=== PATIENT | male | born 2005 | race Caucasian/White ===

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

== ENCOUNTER 2024-09-26 15:56 | Outpatient (CLI) | payer BC, SELFPAY ==
[2024-09-26 19:58] LABS: Hematocrit 43.1 % (42.0-52.0); Hemoglobin 14.7 g/dL (14.0-18.0); Mean Corpuscular HGB Conc 34.1 g/dl (32-36); Mean Corpuscular Hemoglobin 29.3 pg (26-34); Mean Platelet Volume 11.3 fl (7.4-10.4); Platelet Count Result 332 k/mm3 (150-375); Red Blood Count 5.01 M/mm3 (4.6-6.20); Red Cell Distribution Width 12.4 % (11.5-14.5)
[2024-09-26 20:10] LABS: Add Urine Microscopic? NO; Appearance Urine Clear (Clear); Bilirubin Urine Negative (Negative); Blood Urine Negative (Negative); Color Urine Yellow (Yellow); Glucose Urine UA Negative (Negative); Ketones Urine Negative (Negative); Leukocyte Esterase Ur Negative LEU/UL (Negative); Nitrate Urine Negative (Negative); Protein Urine Negative (Negative); Specific Grav Ur 1.003 (1.001-1.035); Urobilinogen Urine 0.2 mg/dL (<2.0); pH Urine 7.5 (5.0-9.0)
[2024-09-26 20:14] LABS: Alanine Aminotransferase 14 U/L (6-50); Albumin Level 4.4 g/dL (3.5-5.1); Alkaline Phosphatase 111 U/L (38-126); Anion Gap 11 mmol/L (4-12); Aspartate Amino Transferase 19 U/L (17-59); Bilirubin,Total 0.6 mg/dL (0.2-1.3); Blood Urea Nitrogen 15 mg/dL (9-20); Calcium 9.7 mg/dL (8.4-10.2); Carbon Dioxide 27 mmol/L (22-30); Chloride 101 mmol/L (98-107); Cholesterol 94 mg/dL (0-200); Estimated Glomerular Filt Rate > 60; Glucose 95 mg/dL (65-110); HDL Direct 42 mg/dL; Potassium 4.4 mmol/L (3.4-5.0); Sodium 139 mmol/L (137-145); Triglycerides 63 mg/dL (<150)
[2024-09-26 20:29] LABS: LDL Cholesterol Direct 41 mg/dL
[2024-09-26 21:11] LABS: Vitamin D 25 Hydroxy 28.6 ng/mL
== END 2024-09-26 15:57 | disposition home or self-care (01) ==
LOC: ANHBWCLAB 15:59
PROVIDERS: PCP Nurse Practitioner Adult Health; Visit Provider Nurse Practitioner Adult Health
DX: Z13.9 Encounter for screening, unspecified (principal); R53.83 Other fatigue; R31.9 Hematuria, unspecified
CPT/HCPCS: 36415; 80053; 80061; 81003; 82306; 84443; 85027

== ENCOUNTER 2025-06-26 23:39 | Emergency (ER) | payer BC, SELFPAY ==
[2025-06-26 23:44] VITALS: BP 129/88; PULSE 71; RESP 14; TEMP 36.4; O2SAT 98
[2025-06-26] MEDS: ONDANSETRON INJ 4 MG/2 ML VIAL IV PUSH (23:49)
--- NOTE | 2025-06-26 23:49 | ED_ITS ---
HPI - Alcohol General Chief Complaint: Alcohol Stated Complaint: ETOH & MARIJUANA INTOXICATION Time Seen by Provider: 06/26/25 23:47 History of Present Illness HPI narrative: 20-year-old otherwise healthy male presenting to the emergency department for alcohol intoxication. Patient was at a local bar and drink reportedly 6 [place] iced teas per report by EMS. Patient also endorsed marijuana. Was otherwise in his normal state of health but is currently nauseous and spitting up. Answering questions and asking for ham sandwich. No focal deficits or injuries. No signs of trauma. Father present at bedside. Related Data Home Medications ?Medication ?Instructions ?Recorded ?Confirmed ?Last Taken ?Type No Home Medications 10/09/20 09/26/24 U nknown History Allergies Allergy/AdvReac Type Severity Reaction Status Date / Time No Known Allergies Allergy Unverified 09/26/24 15:36 [facility] Past Medical History Medical History (Updated 06/27/25 @ 00:22 by Linus Madison MD) Allergies Family History Family History Mother Depression Anxiety Grandparent Hypertension Grandparent Hypertension Grandparent Cancer Social History Social History (Updated 09/26/24 @ 13:28 by Dee Huston MA) Smoking status: Never smoker Alcohol intake: current Alcohol use details: 1-4 per week Substance use: current Lack of Transportation: No Lack of Food: Never True Current Housing: I Have Housing Concerned About Future Housing: No Difficulty Paying Gas/Electric Bills: No Difficulty Paying for Meds: No Currently Unemployed: YES Education: High School Diploma/GED Difficulty w/ Childcare or Family Care: No Living arrangements: with family Occupation/Education: unemployed Agree to blood products: Yes Exam 2 Narrative: GENERAL: Obviously intoxicated, smells of alcohol, spitting up but not vomiting. HEAD: Normocephalic and atraumatic EYES: Pupils are equal reactive to light, conjunctival injection. ENT: Nares clear, no rhinorrhea or epistaxis. Mucous membranes moist. NECK: Supple. CHEST: Clear to auscultation, no distress, symmetric chest rise HEART: Regular pulses, warm extremities ABDOMEN: Soft, nondistended, nontender EXTREMITIES: Normal range of motion. No extremity edema SKIN: Warm, dry, no rash. NEURO: No focal deficits, moving all extremities. Awake and answering questions but intoxicated. No slurred speech. Course Vital Signs Vital signs: Vital Signs Temperature 36.4 C 06/26/25 23:44 Pulse Rate 71 06/26/25 23:44 Respiratory Rate 14 06/26/25 23:44 Blood Pressure 129/88 06/26/25 23:44 Pulse Oximetry 98 06/26/25 23:44 Oxygen Delivery Room Air 06/26/25 23:44 Temperature 36.6 C 06/27/25 01:15 Pulse Rate 68 06/27/25 01:15 Respiratory Rate 13 06/27/25 01:15 Blood Pressure 137/76 06/27/25 01:15 Pulse Oximetry 97 06/27/25 01:15 Oxygen Delivery Room Air 06/26/25 23:44 MDM - Alcohol MDM Narrative Medical decision making narrative: 20-year-old otherwise healthy male presenting to the emergency department for alcohol intoxication. Patient was at a local bar and drink reportedly 6 [place] iced teas per report by EMS. Patient also endorsed marijuana. Was otherwise in his normal state of health but is currently nauseous and spitting up. Answering questions and asking for ham sandwich. No focal deficits or injuries. No signs of trauma. Father present at bedside. Patient has normal vital signs and aside from intoxication an unremarkable physical exam but no injuries. Basic labs and alcohol level obtained. Patient was given dextrose containing fluids, Zofran for nausea, thiamine. Will monitor him here briefly and family felt comfortable taking him home upon workup completion for observation at home for sobriety. Labs largely unremarkable. Alcohol level 244. No further vomiting while here in the ED. Completed his fluids. Family felt comfortable taking him home for further sobriety and given return precautions. Given a dose of Zofran before he left. Medical Records Attestation: I reviewed the patient's medical records. Lab Data Attestation: I reviewed the patient's lab results. 06/27/25 00:00 06/27/25 00:00 Labs: Lab Results 06/27/25 Range/Units 00:00 WBC 9.3 (4.5-10.0) K/mm3 RBC 5.13 (4.6-6.20) M/mm3 Hgb 15.2 (14.0-18.0) g/dL Hct 44.3 (42.0-52.0) % MCV 86.4 (80-100) fl MCH 29.6 (26-34) pg MCHC 34.3 (32-36) g/dl RDW 12.8 (11.5-14.5) % Plt Count 304 (150-375) k/mm3 MPV 9.9 (7.4-10.4) fl Immature Gran % (Auto) 0.5 (0-0.5) % Neut % (Auto) 56.1 (45.5-73.1) % Lymph % (Auto) 37.6 (18.3-44.2) % Gaines % (Auto) 4.3 (2.6-8.5) % Eos % (Auto) 1.1 (0-4.4) % Baso % (Auto) 0.4 (0.2-1.2) % Lymph # (Auto) 3.51 H (0.9-3.2) K/mm3 Gaines # (Auto) 0.4 (0.1-0.6) K/mm3 Eos # (Auto) 0.1 (0-0.3) K/mm3 Baso # (Auto) 0.0 (0.0-0.1) K/mm3 Abs Immat Gran (auto) 0.05 H (0.00-0.031) K/mm3 Absolute Neuts (auto) 5.2 (1.3-6.7) K/mm3 Absolute Nucleated RBC 0.000 (0.0-0.012) K/mm3 Nucleated RBC % 0.0 (0.0-0.2) % Sodium 141 (137-145) mmol/L Potassium 3.3 L (3.4-5.0) mmol/L Chloride 105 (98-107) mmol/L Carbon Dioxide 24 (22-30) mmol/L Anion Gap 12 (4-12) mmol/L BUN 12 (9-20) mg/dL Creatinine 1.06 (0.7-1.3) mg/dL Estim Creat Clear Calc 101 ml/min Estimated GFR > 60 (59 - ) Glucose 109 (65-110) mg/dL Calcium 8.8 (8.4-10.2) mg/dL Ethyl Alcohol 244 (<10) mg/dL Discharge Plan Discharge Clinical Impression: Alcoholic intoxication Patient Disposition: Home Condition: Stable Instructions: Antibiotic Form, Alcohol Intoxication (ED) Additional Instructions: Alcohol level 242, will take approximately 12 hours to reach sobriety. Fluids and antiemetics provided here in the ED. Return with any emergent concerns at any time. Follow-up with regular doctor as needed. Patient Language: Sinhala Prescriptions: No Action No Home Medications Follow-up/Referrals: Irena Villagran APRN [Primary Care Provider, [facility]] Time of Disposition: 00:22
[2025-06-26] MEDS: LACTATED RINGERS 1,000 ML 999 ML IV CONT (23:50)
[2025-06-26] MEDS: DEXTROSE 5%/LACTATED RINGERS 1,000 ML 1000 ML IV CONT (23:50)
[2025-06-26] MEDS: THIAMINE HCL 200 MG/2 ML VIAL 100 MG IV PUSH (23:52)
[2025-06-26 23:54] VITALS: PULSE 81; RESP 24; O2SAT 99
[2025-06-27] VITALS (11 sets, daily range): BP systolic 111–137; BP diastolic 57–99; PULSE 55–103; RESP 12–27; TEMP 36.6; O2SAT 97–100
[2025-06-27 00:07] LABS: Hematocrit 44.3 % (42.0-52.0); Hemoglobin 15.2 g/dL (14.0-18.0); Immature Granulocyte Percent A 0.5 % (0-0.5); Lymphocytes Absolute Auto 3.51 K/mm3 (0.9-3.2); Mean Corpuscular HGB Conc 34.3 g/dl (32-36); Mean Corpuscular Hemoglobin 29.6 pg (26-34); Mean Corpuscular Volume 86.4 fl (80-100); Nucleated Red Blood Cells Absolute Auto 0.000 K/mm3 (0.0-0.012); Nucleated Red Blood Cells Perc 0.0 % (0.0-0.2); Platelet Count Result 304 k/mm3 (150-375); Red Blood Count 5.13 M/mm3 (4.6-6.20); White Blood Count 9.3 K/mm3 (4.5-10.0)
[2025-06-27 00:18] LABS: Anion Gap 12 mmol/L (4-12); Blood Urea Nitrogen 12 mg/dL (9-20); Calcium 8.8 mg/dL (8.4-10.2); Carbon Dioxide 24 mmol/L (22-30); Chloride 105 mmol/L (98-107); Estimated CRCL calculation 101 ml/min; Estimated Glomerular Filt Rate > 60; Glucose 109 mg/dL (65-110); Potassium 3.3 mmol/L (3.4-5.0); Sodium 141 mmol/L (137-145)
== END 2025-06-27 01:16 | disposition home or self-care (01) ==
PROVIDERS: Emergency Provider Student in an Organized Health Care Education/Training Program; PCP Nurse Practitioner Adult Health
DX: F10.129 Alcohol abuse with intoxication, unspecified (principal); Y90.8 Blood alcohol level of 240 mg/100 ml or more
CPT/HCPCS: 36415; 80048; 82077; 85025; 96361; 96374; 96375; 99284; J2405; J3411; J7030; J7120; J7121